=== PATIENT | female | born 1980 | race Caucasian/White ===

== ENCOUNTER 2022-09-09 12:30 | Outpatient (CLI) | payer OTHER | END 2022-09-09 13:13 | disposition home or self-care (01) | LOC: NST 12:30 | PROVIDERS: ATTEND Obstetrics & Gynecology Gynecology | DX: Z34.83 Encounter for supervision of other normal pregnancy, third trimester (principal) ==

== ENCOUNTER 2022-09-11 07:22 | Inpatient (IN) | payer OTHER ==
[~2022-09-11] VITALS: Ht 167.6 cm; Wt 2.3 kg
[2022-09-11] MEDS ORDERED: PRENATAL TABLE1 EAC1 PO (10:31)
== END 2022-09-14 13:04 | disposition home or self-care (01) | DRG 788 ==
LOC: OB/GYN 07:22 → LDR 07:22 → O/R 10:05 → OB/GYN 11:39
PROVIDERS: ADMIT Obstetrics & Gynecology; ATTEND Obstetrics & Gynecology
PROC: 4A1HXCZ Monitoring of Products of Conception, Cardiac Rate, External Approach (ICD-10-PCS; 2022-09-11)
PROC: 10D00Z1 Extraction of Products of Conception, Low, Open Approach (ICD-10-PCS; principal; 2022-09-11 12:00)
DX: O10.92 Unspecified pre-existing hypertension complicating childbirth (principal); O36.5930 Maternal care for other known or suspected poor fetal growth, third trimester, not applicable or unspecified; O34.211 Maternal care for low transverse scar from previous cesarean delivery; Z3A.37 37 weeks gestation of pregnancy; Z37.0 Single live birth; Z20.822 Contact with and (suspected) exposure to COVID-19